=== PATIENT | male | born 1975 | race Caucasian/White ===

== ENCOUNTER → 2016-08-30 | Outpatient (CLI) | payer BC ==
--- NOTE | 2016-08-30 14:40 | US ---
EXAMINATION TYPE: US carotid duplex BILAT DATE OF EXAM: 08/30/2016 2:23 PM COMPARISON: NONE CLINICAL HISTORY: SYNCOPE,R55. EXAM MEASUREMENTS: RIGHT: Peak Systolic Velocity (PSV) cm/sec ----- Right CCA: 87.1 ----- Right ICA: 66.8 ----- Right ECA: 77.6 ICA/CCA ratio: 0.8 RIGHT: End Diastole cm/sec ----- Right CCA: 23.1 ----- Right ICA: 20.7 ----- Right ECA: 17.5 LEFT: Peak Systolic Velocity (PSV) cm/sec ----- Left CCA: 103.5 ----- Left ICA: 67.8 ----- Left ECA: 59.0 ICA/CCA ratio: 0.7 LEFT: End Diastole cm/sec ----- Left CCA: 24.2 ----- Left ICA: 33.7 ----- Left ECA: 12.7 VERTEBRALS (direction of flow): Right Vertebral: Antegrade Left Vertebral: Antegrade No evident atherosclerotic changes, no significant velocity elevations IMPRESSION: 1. No diagnostic evidence of significant hemodynamic stenosis.
--- NOTE | 2016-08-31 10:10 | EEG ---
DATE OF SERVICE: 08/30/2016 INDICATIONS FOR EXAMINATION: This patient is a 41-year-old male being evaluated for syncope and collapse. The patient had episode of dizziness and lightheadedness prior to event. AGE: 41Y EEG FINDINGS: A routine 21-channel, awake digital EEG recording was accomplished utilizing the 10 to 20 international system with bipolar and referential montages. The background activity in the most alert resting state consists of a low to medium amplitude, fairly well-developed and well-sustained 8 to 9 Hz activity over the posterior head regions. This posterior rhythm attenuates to eye opening. There is a small amount of low amplitude 18 to 20 Hz beta activity seen maximally over the anterior head regions. Muscle and movement artifact was observed on a few occasions during the tracing. Hyperventilation failed to add any additional information to the tracing. There is no further activation noted. Photic stimulation at flash frequencies of 2 to 30 Hz produced a good symmetrical occipital driving response. No epileptiform discharges were seen. IMPRESSION: This EEG is within normal limits for the patient's age. The EEG failed to reveal any focal, lateralized or epileptiform abnormalities. Clinical correlation is recommended.
== END | disposition home or self-care (01) ==
LOC: NEUROMAIN 12:58
PROVIDERS: ATTEND Family Medicine
DX: R55 Syncope and collapse (principal)
CPT/HCPCS: 93880; 95816

== ENCOUNTER → 2022-11-21 | Outpatient (CLI) | payer BC ==
--- NOTE | 2022-11-21 07:40 | US ---
EXAMINATION TYPE: US thyroid st tissue head/neck DATE OF EXAM: 11/21/2022 COMPARISON: NONE CLINICAL INDICATION: Male, 47 years old with history of R59.0 ENLARGED LYMPHNODES; cervical lymphaden opathy TECHNIQUE: Multiple grayscale and color Doppler ultrasound images of the bilateral neck were perform ed. FINDINGS/IMPRESSION: Multiple prominent lymph nodes demonstrated within the bilateral neck. The large st on the right measures 2.3 x 0.9 x 1.8 cm. The largest on the left measures 2.6 x 0.7 x 1.5 cm. The se demonstrates ovoid morphology with central fatty hilum. These could be reactive. Consider short-te rm follow-up as clinically indicated.
== END | disposition home or self-care (01) ==
LOC: RADUSWWP 06:56
PROVIDERS: ATTEND Family Medicine
DX: R59.0 Localized enlarged lymph nodes (principal)
CPT/HCPCS: 76536

== ENCOUNTER → 2023-01-11 | Outpatient (CLI) | payer BC ==
--- NOTE | 2023-01-11 12:52 | US ---
EXAMINATION TYPE: US thyroid st tissue head/neck DATE OF EXAM: 01/11/2023 COMPARISON: US 11/21/2022 CLINICAL INDICATION: Male, 47 years old with history of I88.9 NONSPECIFIC LYMPHADENITIS, UNSPECIFIED; Cervical lymphadenitis. Bilateral and midline neck scanned. Hypoechoic area seen right neck: 1.7 x 1.1 x 0.5 cm. Hypoechoic area with hyperechoic center seen left neck: 2.5 x 0.9 x 0.4 cm. Findings could be compatible with cervical than the. If additional workup would be of benefit, contra st CT soft tissue neck could be performed IMPRESSION: Cervical lymphadenopathy
== END | disposition home or self-care (01) ==
LOC: RADUSWWP 06:45
PROVIDERS: ATTEND Family Medicine
DX: I88.9 Nonspecific lymphadenitis, unspecified (principal)
CPT/HCPCS: 76536

== ENCOUNTER 2023-03-15 08:52 | Day surgery (SDC) | payer BC ==
[2023-03-15 09:50] VITALS: BP 118/65; PULSE 74; RESP 18; TEMP 98.2
--- NOTE | 2023-03-15 09:58 | US ---
ULTRASOUND GUIDED FNA NECK LYMPH NODE BIOPSY: CLINICAL HISTORY: Abnormal ultrasound FINDINGS: Preliminary imaging demonstrated all lymph nodes do maintain a fatty hilum. All lymph nodes demonstra [place] short axis less than 1 cm. The majority of the lymph nodes have short axis less than 5 mm. No sizable lymph nodes are seen for p ercutaneous biopsy. Case discussed with patient procedure was discontinued. IMPRESSION: 1. No sizable lymph nodes were seen for percutaneous biopsy. All measured in short axis less than a c entimeter. Patient did report he felt the lymph nodes have reduced in size. Recommend 3 month follow- up ultrasound for further evaluation.
== END 2023-03-15 09:40 | disposition home or self-care (01) ==
LOC: RADPROMAIN 08:52
PROVIDERS: ATTEND Otolaryngology
DX: R59.0 Localized enlarged lymph nodes (principal)
CPT/HCPCS: 76536